=== PATIENT | male | born 1965 | race Two or more races ===

== ENCOUNTER 2024-12-13 20:10 | Inpatient (IN) | payer MEDICAID, OTHER ==
[~2024-12-13] VITALS: Ht 167.6 cm; Wt 72.0 kg
--- NOTE | 2024-12-13 20:20 | ED.PDOC ---
SOB-HPI HPI Comments 59y M who presents to the ED via EMS for chief complaint of shortness of breath. Per EMS, pt has been having flu-like symptoms with associated shortness of breath, fever, cough, chills, and congestion for the past 1 days getting worse. EMS arrived on scene and noted pt was tachycardic in the 120's, temp of 102.3 F , with noted 02 sat in the 70's. Pt was given IV fluids and heart rate went down to the 110's. Pt was placed on 02 and pt has 02 sat in the mid 90's with no noted respiratory distress and brought to the ED. Pt otherwise in no noted distress in the ED. Pt otherwise denies any other symptoms at this time. Chief Complaint: Shortness of Breath Time Seen by MD: 20:33 Reviewed notes: Sales Marketing Manager Notes Information Source: Patient Mode of Arrival: EMS Brought in by: EMS Past Medical History PAST MEDICAL HISTORY: Unknown Surgical History: Unknown Family History Family History: Unknown Social History Smoker: Non-Smoker Alcohol: Denies ETOH Use Drugs: Denies Drug Use Lives In: Home Constitutional: reports: chills, fever; denies: diaphoresis, fatigue, malaise, sweats, weakness, others EENTM: reports: nose congestion; denies: blurred vision, double vision, ear bleeding, ear discharge, ear drainage, ear pain, ear ringing, eye pain, eye redness, hearing loss, mouth pain, mouth swelling, nasal discharge, nose bleeding, nose pain, photophobia, tearing, throat pain, throat swelling, voice changes, others Respiratory: reports: shortness of breath; denies: cough, hemoptysis, orthopnea, SOB at rest, SOB with excertion, stridor, wheezing, others Cardiovascular: denies: chest pain, dizzy spells, diaphoresis, Dyspnea on exertion, edema, irregular heart beat, left arm pain, lightheadedness, palpitations, PND, syncope, others Gastrointestinal: denies: abdomen distended, abdominal pain, blood streaked bowels, constipated, diarrhea, dysphagia, difficulty swallowing, hematemesis, melena, nausea, poor appetite, poor fluid intake, rectal bleeding, rectal pain, vomiting, others Genitourinary: denies: burning, dysuria, flank pain, frequency, hematuria, incontinence, penile discharge, penile sore, pain, testicle pain, testicle swelling, urgency, others Neurological: denies: dizziness, fainting, headache, left sided numbness, left sided weakness, numbness, paresthesia, pre-existing deficit, right sided numbness, right sided weakness, seizure, speech problems, tingling, tremors, weakness, others Musculoskeletal: denies: back pain, gout, joint pain, joint swelling, muscle pain, muscle stiffness, neck pain, others Integumetry: denies: bruises, change in color, change in hair/nails, dryness, laceration, lesions, lumps, rash, wounds, others Allergic/Immunocompromised: denies: Difficulty Healing, Frequent Infections, Hives, Itching, others Hematologic/Lymphatic: denies: anemia, blood clots, easy bleeding, easy bruising, swollen glands, others Endocrine: denies: excessive hunger, excessive sweating, excessive thirst, excessive urination, flushing, intolerance to cold, intolerance to heat, unexplained weight gain, unexplained weight loss, others Psychiatric: denies: anxiety, bipolar disorder, depression, hopeless, panic disorder, schizophrenia, sleepless, suicidal, others All Other Systems: Reviewed and Negative Physical Exam Exam Comments acutely ill appearing General Appearance: Moderate Distress HEENT: Normal ENT Inspection, Pharynx Normal, TMs Normal Neck: Full Range of Motion, Non-Tender, Normal, Normal Inspection Respiratory: Decreased Breath Sounds, Respiratory Distress, Rhonchi Cardiovascular: No Edema, No JVD, No Murmur, No Gallop, Normal Peripheral Pulses, Regular Rate/Rhythm Breast Exam: Deferred Gastrointestinal: No Organomegaly, Non Tender, No Pulsatile Mass, Normal Bowel Sounds, Soft Genitalia: Deferred Pelvic: Deferred Rectal: Deferred Extremities: No calf tenderness, Normal capillary refill, Normal inspection, Normal range of motion, Non-tender, No pedal edema Musculoskeletal : Apperance: Normal Neurologic: Alert, supervisor blood II-XII nml as Tested, No Motor Deficits, Normal Affect, Normal Mood, No Sensory Deficits Cerebellar Function: Normal Reflexes: Normal Skin: Dry, Normal Color, Warm Lymphatic: No Adenopathy Was a procedure done? Was a procedure done?: No Differential Dx Differential Diagnosis: CHF, COPD, Pneumonia, Pulmonary Embolism, Respiratory Distress, Pharyngitis Comments COVID, influenza A and B, sepsis, acute respiratory failure X-Ray, Labs, Meds, VS Vital Signs Date Time Temp Pulse Resp B/P (MAP) Pulse Ox O2 Delivery O2 Flow Rate FiO2 12/13/24 20:25 109 12/13/24 20:10 30 97 Nasal Cannula 3.0 12/13/24 20:10 103.2 110 30 152/87 (108) 97 Lab Test 12/13/24 20:52 12/13/24 20:34 Range/Units Urine Color Light-yellow Yellow Urine Clarity Clear Clear Urine pH 7.0 5.0-9.0 Urine Specific [place] 1.017 1.001-1.035 Urine Protein Negative Negative Urine Ketones Negative Negative Urine Blood 1+ H Negative /uL Urine Nitrite Negative Negative Urine Bilirubin Negative Negative Urine Urobilinogen Normal Negative mg/dL Urine Leukocyte Esterase Negative Negative /uL Urine RBC 10 0 - 3 /hpf Urine Microscopic WBC < 1 0-3 /HPF Urine Squamous Epithelial Cells None seen <5 /hpf Urine Bacteria Few H None Seen /hpf Urine Glucose Normal Normal mg/dL White Blood Count 6.2 4.4-10.8 10^3/uL Red Blood Count 4.79 4.5-5.90 10^6/uL Hemoglobin 13.8 13.5-17.5 g/dL Hematocrit 40.1 L 41.0-53.0 % Mean Corpuscular Volume 83.8 80.0-100.0 fL Mean Corpuscular Hemoglobin 28.9 28.0-32.0 pg Mean Corpuscular Hemoglobin Concent 34.5 32.0-36.0 g/dL Red Cell Distribution Width 13.4 11.8-14.3 % Platelet Count 176 140-450 10^3/uL Mean Platelet Volume 7.0 6.9-10.8 fL Neutrophils (%) (Auto) 76.3 37.0-80.0 % Lymphocytes (%) (Auto) 12.5 10.0-50.0 % Monocytes (%) (Auto) 10.9 0.0-12.0 % Eosinophils (%) (Auto) 0.1 0.0-7.0 % Basophils (%) (Auto) 0.2 0.0-2.0 % Neutrophils # (Auto) 4.7 1.6-8.6 10 ^3/uL Lymphocytes # (Auto) 0.8 0.4-5.4 10 ^3/uL Monocytes # (Auto) 0.7 0-1.3 10 ^3/uL Eosinophils # (Auto) 0 0-0.8 10 ^3/uL Basophils # (Auto) 0 0-0.2 10 ^3/uL Nucleated Red Blood Cells 0.1 % Sodium Level 128 L 136-145 mmol/L Potassium Level 3.7 3.5-5.1 mmol/L Chloride Level 100 98-107 mmol/L Carbon Dioxide Level 19 L 20-31 mmol/L Anion Gap 9 5-15 Blood Urea Nitrogen 11 9-23 mg/dL Creatinine 0.89 0.700-1.30 mg/dL Glomerular Filtration Rate Calc 99 >90 mL/min BUN/Creatinine Ratio 12.4 10.0-20.0 Serum Glucose 103 74-106 mg/dL Lactic Acid Level 1.0 0.4-2.0 mmol/L Calcium Level 8.9 8.7-10.4 mg/dL Total Bilirubin 1.1 H 0.2-1.0 mg/dL Aspartate Amino Transferase (AST) 27 13-40 U/L Alanine Aminotransferase (ALT) 18 7-40 U/L Alkaline Phosphatase 58 46-116 U/L Total Protein 7.1 5.7-8.2 g/dL Albumin 4.6 3.2-4.8 g/dL [place] [address] Ph: [phone] DIAGNOSTIC IMAGING Diagnostic Imaging Report : [id number] Signed PATIENT: CHARLOTTE OLIVER ACCT: [id number] UNIT: [id number] : 1965 LOC: ER ROOM / BED: / AGE / SEX: 59 / M ADM STATUS: REG ER SERVICE 17 ORDERING PHYSICIAN: ALANA ABEL MD PROCEDURE(s): CXRP - CHEST PORTABLE REASON: SOB, fever ORDER NUMBER(s): [id number], ACCESSION NUMBER(s): [id number] CHEST RADIOGRAPH Indication: SOB, fever Technique: Single frontal view of the chest was obtained Comparison: None Findings/ IMPRESSION: Bilateral mid to lower lung zone patchy opacities which raise concern for multifocal pneumonia versus atelectasis versus mild pulmonary edema. ATED BY: MALIHA MARROQUIN DO DICTATED DATE/TIME: 12/13/242121 SIGNED BY: MALIHA MARROQUIN DO SIGNED DATE/TIME: 12/13/242121 CC: Time of 1ST Reevaluation: 21:05 Reevaluation 1ST: Unchanged Time of 2ND Reevaluation: 21:50 Reevaluation 2ND: Unchanged Patient Education/Counseling: Diagnosis, Treatment Family Education/Counseling: No Family Present Departure 1 Departure Time of Disposition: 21:50 Impression: Primary Impression: Respiratory failure with hypoxia Additional Impression: Pneumonia Disposition: ADMITTED INPATIENT Condition: Guarded Discharged With: Self Critical Care Note Critical Care Time?: Yes (45 min-critical care time only) Critical care comment: Total critical care time: Approximately 36 minutes Due to a high probability of clinically significant, life threatening deterioration, the patient required my highest level of preparedness to intervene emergently and I personally spent this critical care time directly and personally managing the patient. This critical care time included obtaining a history; examining the patient; pulse oximetry; ordering and review of studies; arranging urgent treatment with development of a management plan; evaluation of patient's response to treatment; frequent reassessment; and, discussions with other providers. This critical care time was performed to assess and manage the high probability of imminent, life-threatening deterioration that could result in multi-organ failure. It was exclusive of separately billable procedures and treating other patients. Stability Stability form required: No Heart Score Heart Score: Heart Score Response (Comments) Value History N/A 0 EKG N/A 0 Age N/A 0 Risk Factors N/A 0 Troponin N/A 0 Total 0 I personally scribed for ALANA ABEL MD (ERIKA) on 12/13/24 at 20:20. Electronically submitted by Neida Whitt ([facility]). I personally scribed for ALANA ABEL MD (ERIKA) on 12/13/24 at 20:36. Electronically submitted by Neida Whitt ([facility]). I personally scribed for ALANA ABEL MD (ERIKA) on 12/13/24 at 21:28. Electronically submitted by [facility] ALANA ABEL MD Dec 13, 2024 20:20
[2024-12-13] MEDS: ACETAMINOPHEN 325 MG TAB PO ONE (20:30)
[2024-12-13] MEDS: SODIUM CHLORIDE 0.9% 1,000 ML IVB ONE (20:30)
[2024-12-13 20:47] LABS: Basophils # (auto) 0 10 ^3/uL (0-0.2); Basophils % (auto) 0.2 % (0.0-2.0); Eosinophils # (auto) 0 10 ^3/uL (0-0.8); Eosinophils % (auto) 0.1 % (0.0-7.0); Hematocrit 40.1 % (41.0-53.0); Hemoglobin 13.8 g/dL (13.5-17.5); Lymphocytes # (auto) 0.8 10 ^3/uL (0.4-5.4); Lymphocytes % (auto) 12.5 % (10.0-50.0); Mean Corpuscular Hemoglobin 28.9 pg (28.0-32.0); Mean Corpuscular Hgb Conc. 34.5 g/dL (32.0-36.0); Mean Corpuscular Volume 83.8 fL (80.0-100.0); Monocytes # (auto) 0.7 10 ^3/uL (0-1.3); Monocytes % (auto) 10.9 % (0.0-12.0); Neutrophils # (auto) 4.7 10 ^3/uL (1.6-8.6); Neutrophils % (auto) 76.3 % (37.0-80.0); Nucleated Red Blood Cells % 0.1 %; Platelet Count (auto) 176 10^3/uL (140-450); Red Blood Cells 4.79 10^6/uL (4.5-5.90); Red Cell Distribution Width 13.4 % (11.8-14.3); White Blood Cell 6.2 10^3/uL (4.4-10.8)
--- NOTE | 2024-12-13 20:52 | ECG ---
[facility] Test Date: 2024-12-13 Test Time: 20:25:06 Pat Name: CHARLOTTE OLIVER Department: ED Room: 0209T Gender: M Finisher Operator: CARLOS MANUEL : 1965 Requested By: ALANA ABEL Order Number: [id number] Reading MD: Lopez Desouza Measurements Intervals [place] Rate: 109 P: 51 VA: 158 QRS: 88 QRSD: 106 T: 52 QT: 329 QTc: 444 Interpretive Statements Sinus tachycardia Electronically Signed On 12-17-2024 8:49:38 PST by Lopez Desouza Please click the below link to view image of tracing.
[2024-12-13 21:01] LABS: Alanine Aminotransferase 18 U/L (7-40); Albumin 4.6 g/dL (3.2-4.8); Alkaline Phosphatase 58 U/L (46-116); Anion Gap 9 (5-15); Aspartate Aminotransferase 27 U/L (13-40); BUN/Creatinine Ratio 12.4 (10.0-20.0); Bilirubin, Total 1.1 mg/dL (0.2-1.0); Blood Urea Nitrogen 11 mg/dL (9-23); Calcium 8.9 mg/dL (8.7-10.4); Chloride 100 mmol/L (98-107); Glucose 103 mg/dL (74-106); Potassium 3.7 mmol/L (3.5-5.1)
[2024-12-13 21:02] LABS: Total Protein 7.1 g/dL (5.7-8.2)
--- NOTE | 2024-12-13 21:25 | DVH ---
CHEST RADIOGRAPH Indication: SOB, fever Technique: Single frontal view of the chest was obtained Comparison: None Findings/ IMPRESSION: Bilateral mid to lower lung zone patchy opacities which raise concern for multifocal pneumonia versus atelectasis versus mild pulmonary edema.
[2024-12-13 21:36] LABS: Urine Bacteria FEW /hpf (None Seen); Urine Blood 1+ /uL (Negative); Urine Clarity Clear (Clear); Urine Color Light-Yellow (Yellow); Urine Protein, UAD Negative (Negative); Urine Specific Gravity 1.017 (1.001-1.035); Urine Squamous Epithelial Cell None Seen /hpf (<5); Urine Urobilinogen Normal (Negative); Urine WBC < 1 /HPF (0-3)
[2024-12-13 21:39] LABS: Carbon Dioxide 19 mmol/L (20-31); Sodium 128 mmol/L (136-145)
[2024-12-13] MEDS: cefTRIAXone 1GM/50ML D5W 50 ML IV ONE (22:07)
[2024-12-13] MEDS: AZITHROMYCIN 500MG/ 250ML 250 ML IV ONE (22:26)
[2024-12-14] VITALS (7 sets, daily range): BP systolic 104; BP diastolic 62–65; PULSE 63–106; RESP 16–22; TEMP 97.8–98.2; O2SAT 94–98
[2024-12-14 01:26] LABS: Rapid Influenza A Negative (Negative)
[2024-12-14 01:27] LABS: Rapid Influenza B Positive (Negative)
[2024-12-14] MEDS ORDERED: MORPHINE SULFATE INJ 2 MG/ml SYRG IV PRN (02:30)
[2024-12-14] MEDS ORDERED: ONDANSETRON HCL 4 MG/2 ML VIAL IV PRN (02:30)
[2024-12-14] MEDS ORDERED: NITROGLYCERIN 0.4 MG SL TAB SL PRN (02:30)
[2024-12-14] MEDS ORDERED: DOCUSATE SOD 100 MG CAP PO PRN (02:30)
[2024-12-14] MEDS ORDERED: HYDROcodone-ACET 5/325MG TAB PO PRN (02:30)
--- NOTE | 2024-12-14 02:30 | DVHHP2 ---
History of Present Illness Reason for Visit: Respiratory failure with hypoxia History of Present Illness The patient is a 59-year-old male who denies past medical history presented to [facility] ED with complaint of shortness of breaths. Patient reports symptoms progressively get worse with cough, nasal congestion, fever, chills, getting worse that prompted this visit. Patient was seen and evaluated in the ED, laboratory data shows WBC 6.2, platelets 176, sodium 128, potassium 3.7, BUN 11, creatinine 0.89, GFR 99, glucose 103, BNP 41.82, temperature 103.2 F, tachycardic in the 120's, 02 sat in the 70's and was placed on oxygen 2 liter/minutes via nasal cannula O2 saturation improved to 97%. Chest x-ray revealing bilateral mid to lower lung zone patchy opacities which raises concern for multifocal pneumonia versus atelectasis versus mild pulmonary edema. Serology reports positive for influenza B. Patient was started on IV antibiotic regimen azithromycin, please see medication orders section in the computer. On my assessment, patient denies chest pain, no headache, no dizziness, no diaphoresis, no nausea, no vomiting, no fever, no chills. Patient was admitted for further evaluation and medical management. Past Medical History Unknown Past Surgical History Unknown Family History Reviewed, noncontributory to the management of this case. Past Social History The patient lives at home, denies smoking, alcohol or illicit drugs abuse. Review of Systems Constitutional: Yes: Fever, Chills, Weakness; No: Sweats, Malaise, Other Eyes: No: Pain, Vision change, Conjunctivae inflammation, Eyelid inflammation, Other, Redness ENT: Nose congestion; No: Ear pain, Ear discharge, Nose pain, Nose discharge, Mouth pain, Mouth swelling, Throat pain, Throat swelling, Other Respiratory: Shortness of breath; No: Cough, Dry, SOB with excertion, Wheezing, Hemoptysis, Pleuritic Pain, Sputum, Wheezing, Other Cardiovascular: No: Chest Pain, Palpitations, Orthopnea, Paroxysmal Noc. Dyspnea, Edema, Lt Headedness, Other Gastrointestinal: No: Nausea, Vomiting, Abdominal Pain, Diarrhea, Constipation, Melena, Hematochezia, Other Genitourinary: No Dysuria, No Frequency, No Incontinence, No Hematuria, No Retention, No Other Musculoskeletal: No: other, neck pain, shoulder pain, arm pain, back pain, hand pain, leg pain, foot pain Skin: No: Rash, Lesions, Jaundice, Bruising, Other Neurological: No: Weakness, Numbness, Incoordination, Change in speech, Confusion, Seizures, Other Allergies: Coded Allergies: NO KNOWN ALLERGIES (Unverified , 12/13/24) Exam Vital Signs Vital Signs Date Time Temp Pulse Resp B/P (MAP) Pulse Ox O2 Delivery O2 Flow Rate FiO2 12/14/24 02:16 107 20 126/68 (87) 91 12/13/24 21:30 103.2 12/13/24 20:10 Nasal Cannula 3.0 General Appearance: Alert, Oriented X3, Cooperative, No acute distress HEENT: Atraumatic, PERRLA, EOMI, Mucous membr. moist/pink Respiratory: Normal air movement, Other (Diminished breath sounds) Cardiovascular: Regular rate, Normal S1, Normal S2, No murmurs Abdominal: Normal bowel sounds, Soft, No tenderness, No hepatospenomegaly, No masses Extremities: No clubbing, No cyanosis, No edema, Normal pulses, No tenderness/swelling Skin: No rashes, No breakdown, No significant lesion Neuro: Normal speech, Normal tone, Sensation intact, Cranial nerves 3-12 NL, Reflexes 2+, Other (Generalized weakness) Psych/Mental Status: Mental status NL, Mood NL Labs/Xrays Labs Test 12/13/24 22:00 12/13/24 20:52 12/13/24 20:34 Range/Units Influenza Type A Antigen Negative Negative Influenza Type B Antigen Positive Negative Urine Color Light-yellow Yellow Urine Clarity Clear Clear Urine pH 7.0 5.0-9.0 Urine Specific [place] 1.017 1.001-1.035 Urine Protein Negative Negative Urine Ketones Negative Negative Urine Blood 1+ H Negative /uL Urine Nitrite Negative Negative Urine Bilirubin Negative Negative Urine Urobilinogen Normal Negative mg/dL Urine Leukocyte Esterase Negative Negative /uL Urine RBC 10 0 - 3 /hpf Urine Microscopic WBC < 1 0-3 /HPF Urine Squamous Epithelial Cells None seen <5 /hpf Urine Bacteria Few H None Seen /hpf Urine Glucose Normal Normal mg/dL White Blood Count 6.2 4.4-10.8 10^3/uL Red Blood Count 4.79 4.5-5.90 10^6/uL Hemoglobin 13.8 13.5-17.5 g/dL Hematocrit 40.1 L 41.0-53.0 % Mean Corpuscular Volume 83.8 80.0-100.0 fL Mean Corpuscular Hemoglobin 28.9 28.0-32.0 pg Mean Corpuscular Hemoglobin Concent 34.5 32.0-36.0 g/dL Red Cell Distribution Width 13.4 11.8-14.3 % Platelet Count 176 140-450 10^3/uL Mean Platelet Volume 7.0 6.9-10.8 fL Neutrophils (%) (Auto) 76.3 37.0-80.0 % Lymphocytes (%) (Auto) 12.5 10.0-50.0 % Monocytes (%) (Auto) 10.9 0.0-12.0 % Eosinophils (%) (Auto) 0.1 0.0-7.0 % Basophils (%) (Auto) 0.2 0.0-2.0 % Neutrophils # (Auto) 4.7 1.6-8.6 10 ^3/uL Lymphocytes # (Auto) 0.8 0.4-5.4 10 ^3/uL Monocytes # (Auto) 0.7 0-1.3 10 ^3/uL Eosinophils # (Auto) 0 0-0.8 10 ^3/uL Basophils # (Auto) 0 0-0.2 10 ^3/uL Nucleated Red Blood Cells 0.1 % Sodium Level 128 L 136-145 mmol/L Potassium Level 3.7 3.5-5.1 mmol/L Chloride Level 100 98-107 mmol/L Carbon Dioxide Level 19 L 20-31 mmol/L Anion Gap 9 5-15 Blood Urea Nitrogen 11 9-23 mg/dL Creatinine 0.89 0.700-1.30 mg/dL Glomerular Filtration Rate Calc 99 >90 mL/min BUN/Creatinine Ratio 12.4 10.0-20.0 Serum Glucose 103 74-106 mg/dL Lactic Acid Level 1.0 0.4-2.0 mmol/L Calcium Level 8.9 8.7-10.4 mg/dL Total Bilirubin 1.1 H 0.2-1.0 mg/dL Aspartate Amino Transferase (AST) 27 13-40 U/L Alanine Aminotransferase (ALT) 18 7-40 U/L Alkaline Phosphatase 58 46-116 U/L Troponin I High Sensitivity 5 </=54 ng/L B-Type Natriuretic Peptide 41.82 0-100 pg/mL Total Protein 7.1 5.7-8.2 g/dL Albumin 4.6 3.2-4.8 g/dL PATIENT: CHARLOTTE OLIVER ACCT: [id number] UNIT: [id number] : 1965 LOC: ER ROOM / BED: / AGE / SEX: 59 / M ADM STATUS: REG ER SERVICE 17 ORDERING PHYSICIAN: ALANA ABEL MD PROCEDURE(s): CXRP - CHEST PORTABLE REASON: SOB, fever ORDER NUMBER(s): [id number], ACCESSION NUMBER(s): [id number] CHEST RADIOGRAPH Indication: SOB, fever Technique: Single frontal view of the chest was obtained Comparison: None Findings/ IMPRESSION: Bilateral mid to lower lung zone patchy opacities which raise concern for multifocal pneumonia versus atelectasis versus mild pulmonary edema. Assessment/Plan Assessment/Plan Respiratory failure with hypoxia Influenza B Fever, unspecified Pneumonia, unspecified organism Plan 1. Admit to telemetry unit 2. Breathing treatment 3. Pain control management 4. IV antibiotic management 5. Management of fluids and electrolytes 6. Consultation for pulmonology 7. Diagnostic test chest x-ray 8. DVT prophylaxis-on SCDs 9. Repeat labs CBC, CMP in a.m. 10. Continue with current medical management 11. Treatment plan discussed with patient and RN. Patient verbalized understanding. Plan discussed with: Patient, Other (RN) My Orders Orders - ALLA CHAN DNP Procedure Category Date Status Time Complete Blood Count LAB 12/14/24 Verified 04:00 Comprehensive LAB 12/14/24 Verified Metabolic Panel 04:00 Problem List: (1) Respiratory failure with hypoxia (2) Influenza B (3) Fever, unspecified (4) Pneumonia, unspecified organism Date of Service: Dec 14, 2024 Billing Provider: ALLA CHAN DNP Common Visit Codes: 98109-[id number] INP/OBS CARE (HIGH) ALLA CHAN DNP Dec 14, 2024 02:30
[2024-12-14] MEDS: ACETAMINOPHEN 325 MG TAB PO PRN (03:20)
[2024-12-14] MEDS: DexAMETHasone SOD PHOS 10MG/1ML VIAL INJ IV ONE (03:21)
[2024-12-14] MEDS: SODIUM CHLORIDE 0.9% 1,000 ML IV SCH (03:21)
[2024-12-14] MEDS: IBUPROFEN 600 MG TAB PO ONE (05:11)
[2024-12-14 06:01] LABS: Basophils # (auto) 0 10 ^3/uL (0-0.2); Basophils % (auto) 0.2 % (0.0-2.0); Eosinophils # (auto) 0 10 ^3/uL (0-0.8); Hematocrit 38.6 % (41.0-53.0); Hemoglobin 13.4 g/dL (13.5-17.5); Lymphocytes # (auto) 0.5 10 ^3/uL (0.4-5.4); Mean Corpuscular Hemoglobin 29.1 pg (28.0-32.0); Mean Corpuscular Hgb Conc. 34.8 g/dL (32.0-36.0); Mean Corpuscular Volume 83.6 fL (80.0-100.0); Monocytes # (auto) 0.6 10 ^3/uL (0-1.3); Monocytes % (auto) 6.5 % (0.0-12.0); Neutrophils # (auto) 7.6 10 ^3/uL (1.6-8.6); Neutrophils % (auto) 87.3 % (37.0-80.0); Nucleated Red Blood Cells % 0.1 %; Platelet Count (auto) 191 10^3/uL (140-450); Red Blood Cells 4.62 10^6/uL (4.5-5.90); Red Cell Distribution Width 13.7 % (11.8-14.3); White Blood Cell 8.7 10^3/uL (4.4-10.8)
[2024-12-14 06:16] LABS: Alanine Aminotransferase 25 U/L (7-40); Albumin 4.5 g/dL (3.2-4.8); Alkaline Phosphatase 63 U/L (46-116); Anion Gap 10 (5-15); Aspartate Aminotransferase 40 U/L (13-40); BUN/Creatinine Ratio 10.7 (10.0-20.0); Calcium 8.9 mg/dL (8.7-10.4); Glucose 102 mg/dL (74-106); Potassium 3.8 mmol/L (3.5-5.1); Total Protein 7.1 g/dL (5.7-8.2)
[2024-12-14 06:18] LABS: Bilirubin, Total 1.3 mg/dL (0.2-1.0); Blood Urea Nitrogen 9 mg/dL (9-23); Carbon Dioxide 18 mmol/L (20-31); Chloride 96 mmol/L (98-107); Sodium 124 mmol/L (136-145)
[2024-12-14] MEDS: ASPirin 81 mg TAB PO SCH (11:43)
[2024-12-14] MEDS: OSELTAMIVIR 75 MG CAP PO SCH (11:43)
--- NOTE | 2024-12-14 14:01 | DVHPNRES ---
Progress Note Date Seen: Dec 14, 2024 Resident Creating Document: ROSHAN JARAMILLO RESIDENT Has the PT tested + for MRSA If YES, has PT been informed?: No Medical Necessity Reason Pt with a Central, PICC or Fol: No Subjective Review of Systems This is a 59-year-old male with no significant past medical history, (per she says he is off of from high cholesterol but not on any medications), the patient presented to the ED with chief complaint of shortness of breaths associated with fever and chills. The patient also reported productive cough and nasal congestion. The patient denied chest pain, abdominal pain, nausea, vomiting, diarrhea or any other complaint. The patient stated that the symptoms started a couple of days before coming to the ED. initial chest x-ray showed bilateral patchy opacities on both lungs that he has a little bit more prominent on the right mid lobe. Initial CBC and BNP were grossly unremarkable. Urinalysis came back negative, BNP was normal range at 29.86. The patient tested positive for influenza A. The patient was started on oseltamivir 75 mg b.i.d., IV azithromycin and was admitted for further assessment and management of viral pneumonia. Patient seen and examined at bedside. The patient is alert and oriented in person, place and time. The patient is currently on 2 L of oxygen through nasal cannula saturating 97%. The patient still reports mild to moderate shortness of breaths, cough associated with generalized weakness and fatigue. We explained the patient the current diagnosis and current plan of care. We will continue on oseltamivir 75 mg b.i.d. IV azithromycin. We will start the patient on respiratory therapy albuterol and ipratropium med nebs q.6 p.r.n.. We will continue monitoring oxygen saturation and titrating oxygen down as tolerated. ROS Constitutional: Reports generalized weakness and fatigue. Denies weight loss, fever and chills. HEENT: Denies changes in vision and hearing. Respiratory: Reports mild to moderate shortness of breath and productive cough. Cardiovascular: Denies chest discomfort or palpitations GI: Denies abdominal pain, nausea, vomiting and diarrhea. : Denies dysuria and urinary frequency. Musculoskeletal: Denies myalgias and joint pain Skin: Denies rash and pruritus. Neurological: Denies dizziness, headache, vision or hearing problems Objective vital signs Vital Sign Date Time Temp Pulse Resp B/P (MAP) Pulse Ox O2 Delivery O2 Flow Rate FiO2 12/14/24 12:00 68 18 106/68 (81) 94 12/14/24 08:00 98.2 98.2 12/14/24 08:00 Nasal Cannula* 2 28 Total Intake and Output 12/13/24 12/13/24 12/14/24 15:00 23:00 07:00 Intake Total 1050 ml Balance 1050 ml medications Current Medications Medications Dose Ordered Sig/Sejal Route Start Time Stop Time Status Last Admin Dose Admin Ceftriaxone Sodium 50 ml @ 100 mls/hr DAILY@2100 IV 12/14/24 21:00 Azithromycin 250 ml @ 125 mls/hr DAILY@2200 IV 12/14/24 22:00 Aspirin 81 mg DAILY PO 12/14/24 10:00 12/14/24 11:43 81 MG Dexamethasone Sodium Phosphate 6 mg DAILY IV 12/15/24 10:00 Sodium Chloride 1,000 ml @ 60 mls/hr [id number] IV 12/14/24 02:30 12/14/24 03:21 60 MLS/HR Acetaminophen/ Hydrocodone Bitart 1 tab Q4HP PRN PO 12/14/24 02:30 Ondansetron HCl 4 mg Q4HP PRN IV 12/14/24 02:30 Docusate Sodium 100 mg BIDPRN PRN PO 12/14/24 02:30 Acetaminophen 650 mg Q6HP PRN PO 12/14/24 02:30 12/14/24 03:20 650 MG Nitroglycerin 0.4 mg Q5MINP PRN SL 12/14/24 02:30 Morphine Sulfate 2 mg Q30M PRN IV 12/14/24 02:30 Oseltamivir Phosphate 75 mg Q12HR PO 12/14/24 10:00 12/19/24 09:59 12/14/24 11:43 75 MG Examination Physical examination General: Patient alert and oriented in person, place and time. Patient looks to have generalized weakness and fatigue. Patient following commands. HEENT: Normocephalic, atraumatic, moist mucous membranes Respiratory/pulmonary: There are crackles mostly present on mid to lower right lobe, left lung sounds grossly clear. No wheezes at this time. Currently on 2 L of oxygen through nasal cannula saturating 96%. Cardiovascular: Normal heart sounds S1 and S2 with no associated murmurs Abdomen: Abdomen nondistended, there is no pain to palpation in any of the abdominal quadrants, no palpable masses. Extremities: There is no peripheral edema present at the lower extremities. Peripheral Pulses: 3+ Radial (R). 3+ Radial (L). 3+ Dorsalis pedis (R). 3+ Dorsalis pedis(L) Skin: No rashes or pruritus, there is no sacral edema present at this time. Neurological: Intact cranial nerves with no focal neurologic deficits laboratory and microbiology Laboratory Tests 12/14/24 04:50 Test 12/14/24 04:50 Range/Units Serum Glucose 102 74-106 mg/dL Problem List/Assessment/Plan Problem List/Assessment/Plan Assessment/Plan Acute hypoxic respiratory failure likely due to Gram-positive/Gram-negative bacterial pneumonia Influenza A Viral pneumonia -initial chest x-ray was showing bilateral opacities in both lungs but more prominent on the right mid lobe. -currently on 2 L of oxygen through nasal cannula saturating 96% -patient was started on IV ceftriaxone and azithromycin -start oseltamivir 75 mg b.i.d. -continue NS at 60 cc/hour -symptomatic treatment with acetaminophen -respiratory therapy with albuterol and ipratropium q.6 p.r.n. -monitor saturation and titrate oxygen down as tolerated. Mild hyponatremia; asymptomatic -sodium 126 -continue IV fluids and monitor electrolytes closely Dyslipidemia -ordered lipid panel Goals of care discussed with the patient and at bedside for 20min, FULL CODE Plan discussed with Dr. Torres Plan discussed with: Patient, Spouse, Son, Other (RN) Addendum Addendum Addendum I was physically present for the escobar portions of the service provided to patient by THE RESIDENT. I have reviewed the documentation, discussed the case with resident and agree with the resident's documentation except as noted. Also the patient's clinical case was discussed with the patient's nurse. This medical document was created using an electronic medical record system with computerized dictation system. Although this document has been carefully reviewed, there might still be some phonetic and typographical errors. These areas are purely typographical due to imperfections of the software programs, and do not reflect any compromise in the patient's medical care. Late signature. Date of Service: Dec 14, 2024 Billing Provider: LOUIS TORRES MD Common Visit Codes: 37899-[id number] INP/OBS CARE(HIGH) Secondary Visit Codes: 01042-[id number] CARE PLAN 30 MINUTES (20 minutes) ROSHAN JARAMILLO Dec 14, 2024 14:01 LOUIS TORRSE MD Dec 15, 2024 06:49
[2024-12-14] MEDS: IPRATROPIUM BROM 0.5 MG/2.5ML INH SOL ONE (14:49)
[2024-12-14] MEDS: IPRATROPIUM BROM 0.5 MG/2.5ML INH SOL NEB PRN (14:49)
[2024-12-14] MEDS: ALBUTEROL SULF 2.5 MG/0.5ML(0.5%) NEB SOLN ONE (14:49)
[2024-12-14] MEDS: ALBUTEROL SULF 2.5 MG/0.5ML(0.5%) NEB SOLN NEB PRN (14:49)
[2024-12-14 14:52] LABS: LDL Cholesterol 78 mg/dL (< 100); Triglycerides 40 mg/dL (< 150)
[2024-12-14 14:54] LABS: Cholesterol 125 mg/dL (< 200); HDL Cholesterol 45 mg/dL (40-59)
--- NOTE | 2024-12-14 18:40 | DVHINCON2 ---
Date of service: Dec 14, 2024 Referring Physician CANDELARIO Saldana Reason for Consultation Acute hypoxic respiratory failure History of Present Illness 59-year-old man with no prior medical history presented with shortness of breath. He was having flu-like symptoms associated with shortness of breath, f ever and cough. He also noted chills. Noted congestion for the last 24 hours prior to admission. EMS arrived and found him tachycardic and febrile. He was found to be hypoxic with a pulse oximetry reading in the 70s. IV fluids were initiated with improvement in his tachycardia. He was placed on supplemental oxygen with improvement O2 saturation to the mid 90s. Pulmonary consultation is called due to acute hypoxic respiratory failure. Review of systems: Unable to obtain due to patient's critical condition. Past medical history: Unable to obtain due to patient's critical condition Past surgical history: Unable to obtain due to patient's critical condition Medications: Reviewed Allergies: No known drug allergies. Family history: No family history of premature CAD. No family history of lung disease Social history: Nonsmoker. No alcohol or illicit drug use. Lives at home. Allergies: Coded Allergies: NO KNOWN ALLERGIES (Unverified , 12/13/24) Current Medications Current Medications Medications (Trade) Dose Ordered Sig/Sejal Route PRN Reason Start Time Stop Time Status Last Admin Ceftriaxone Sodium 50 ml @ 100 mls/hr DAILY@2100 IV 12/14/24 21:00 Azithromycin 250 ml @ 125 mls/hr DAILY@2200 IV 12/14/24 22:00 Aspirin 81 mg DAILY PO 12/14/24 10:00 12/14/24 11:43 Dexamethasone Sodium Phosphate (Decadron Injection) 6 mg DAILY IV 12/15/24 10:00 Sodium Chloride 1,000 ml @ 60 mls/hr [id number] IV 12/14/24 02:30 12/14/24 03:21 Acetaminophen/ Hydrocodone Bitart ([place] 5/325MG Tab) 1 tab Q4HP PRN PO MODERATE PAIN (4-6 PAIN SCALE) 12/14/24 02:30 Ondansetron HCl (Zofran) 4 mg Q4HP PRN IV NAUSEA / VOMITING 12/14/24 02:30 Docusate Sodium (Colace Capsule) 100 mg BIDPRN PRN PO FOR CONSTIPATION 12/14/24 02:30 Acetaminophen (Tylenol Tablet) 650 mg Q6HP PRN PO PAIN SCALE 1-3 OR TEMP>100.4 12/14/24 02:30 12/14/24 03:20 Nitroglycerin (Ntrostat Sublingual) 0.4 mg Q5MINP PRN SL FOR CHEST PAIN 12/14/24 02:30 Morphine Sulfate 2 mg Q30M PRN IV FOR CHEST PAIN 12/14/24 02:30 Oseltamivir Phosphate (Tamiflu 75MG Capsule) 75 mg Q12HR PO 12/14/24 10:00 12/19/24 09:59 12/14/24 11:43 Albuterol (Ventolin Medneb) 2.5 mg Q6HPRN PRN NEB SHORTNESS OF BREATH 12/14/24 14:00 12/14/24 14:49 Ipratropium [place] (Atrovent Medneb) 0.5 mg Q6HPRN PRN NEB SHORTNESS OF BREATH 12/14/24 14:00 12/14/24 14:49 Vital Signs Vital Signs Date Time Temp Pulse Resp B/P (MAP) Pulse Ox O2 Delivery O2 Flow Rate FiO2 12/14/24 18:13 119/62 (81) 12/14/24 16:00 82 94 12/14/24 15:04 98.2 18 2.0 98.2 12/14/24 14:46 Nasal Cannula* 28 Physical Exam Gen.: Patient lying in bed in no apparent distress. On supplemental oxygen. Head: Normocephalic, atraumatic Eyes: EOMI/PERRLA. Ears: Normal hearing. Normal anatomy. Neck/trachea: Trachea midline, supple. Nose: Normal external anatomy. Mouth: Moist mucous membranes. Chest: Fair air entry bilaterally. No wheezing or rhonchi. Cardio vascular: Positive S1, positive S2. Regular rate and rhythm. Abdomen: Positive bowel sounds in all 4 quadrants. Soft, non-tender, non- distended. : Deferred. Rectal: Deferred Skin: Warm, dry. Extremities: 2+ radial pulses bilaterally. No lower extremity edema. Neuro: Awake, alert. No gross motor or sensory deficits. Cranial nerves II through XII intact. Gait not assessed. Labs/Diagnostic Data Labs Test 12/14/24 04:50 12/13/24 22:00 12/13/24 20:52 12/13/24 20:34 Range/Units White Blood Count 8.7 # 4.4-10.8 10^3/uL Red Blood Count 4.62 4.5-5.90 10^6/uL Hemoglobin 13.4 L 13.5-17.5 g/dL Hematocrit 38.6 L 41.0-53.0 % Mean Corpuscular Volume 83.6 80.0-100.0 fL Mean Corpuscular Hemoglobin 29.1 28.0-32.0 pg Mean Corpuscular Hemoglobin Concent 34.8 32.0-36.0 g/dL Red Cell Distribution Width 13.7 11.8-14.3 % Platelet Count 191 140-450 10^3/uL Mean Platelet Volume 7.3 6.9-10.8 fL Neutrophils (%) (Auto) 87.3 H 37.0-80.0 % Lymphocytes (%) (Auto) 6.0 L 10.0-50.0 % Monocytes (%) (Auto) 6.5 0.0-12.0 % Eosinophils (%) (Auto) 0.0 0.0-7.0 % Basophils (%) (Auto) 0.2 0.0-2.0 % Neutrophils # (Auto) 7.6 1.6-8.6 10 ^3/uL Lymphocytes # (Auto) 0.5 0.4-5.4 10 ^3/uL Monocytes # (Auto) 0.6 0-1.3 10 ^3/uL Eosinophils # (Auto) 0 0-0.8 10 ^3/uL Basophils # (Auto) 0 0-0.2 10 ^3/uL Nucleated Red Blood Cells 0.1 % Sodium Level 124 L 136-145 mmol/L Potassium Level 3.8 3.5-5.1 mmol/L Chloride Level 96 L 98-107 mmol/L Carbon Dioxide Level 18 L 20-31 mmol/L Anion Gap 10 5-15 Blood Urea Nitrogen 9 9-23 mg/dL Creatinine 0.84 0.700-1.30 mg/dL Glomerular Filtration Rate Calc 100 >90 mL/min BUN/Creatinine Ratio 10.7 10.0-20.0 Serum Glucose 102 74-106 mg/dL Calcium Level 8.9 8.7-10.4 mg/dL Total Bilirubin 1.3 H 0.2-1.0 mg/dL Aspartate Amino Transferase (AST) 40 13-40 U/L Alanine Aminotransferase (ALT) 25 7-40 U/L Alkaline Phosphatase 63 46-116 U/L Total Protein 7.1 5.7-8.2 g/dL Albumin 4.5 3.2-4.8 g/dL Triglycerides Level 40 < 150 mg/dL Cholesterol Level 125 < 200 mg/dL LDL Cholesterol 78 < 100 mg/dL HDL Cholesterol 45 40-59 mg/dL Influenza Type A Antigen Negative Negative Influenza Type B Antigen Positive Negative Urine Color Light-yellow Yellow Urine Clarity Clear Clear Urine pH 7.0 5.0-9.0 Urine Specific [place] 1.017 1.001-1.035 Urine Protein Negative Negative Urine Ketones Negative Negative Urine Blood 1+ H Negative /uL Urine Nitrite Negative Negative Urine Bilirubin Negative Negative Urine Urobilinogen Normal Negative mg/dL Urine Leukocyte Esterase Negative Negative /uL Urine RBC 10 0 - 3 /hpf Urine Microscopic WBC < 1 0-3 /HPF Urine Squamous Epithelial Cells None seen <5 /hpf Urine Bacteria Few H None Seen /hpf Urine Glucose Normal Normal mg/dL Lactic Acid Level 1.0 0.4-2.0 mmol/L Troponin I High Sensitivity 5 </=54 ng/L B-Type Natriuretic Peptide 41.82 0-100 pg/mL Assessment Impression: Acute hypoxic respiratory failure Influenza type B Febrile Multifocal Pneumonia likely Gram-negative Atelectasis Pulmonary edema Plan: Supplemental oxygen line on 2 liters/minute via nasal cannula keep O2 saturation above 92%. Continue antibiotics Follow up cultures IV fluid hydration Monitor ins and outs Monitor renal function Monitor electrolytes Supplement as necessary. DVT prophylaxis Prognosis: Poor given multiple comorbidities. Rest of plan per hospitalist and other consultants. Thank you CANDELARIO Saldana for allowing me to participate in this patient's care. Further recommendations will depend on patient's clinical course. Please do not hesitate to contact me if you have any questions or concerns. This medical document was created using an electronic medical record system with [employer] dictation system. Although this document has been carefully reviewed, there may still be some phonetic and typographical errors. These areas are purely typographical due to imperfections of the software programs, and do not reflect any compromise in the patient's medical care. Plan discussed with: Other (VOICE COACH) LISA ZHONG MD Dec 14, 2024 18:40
[2024-12-14] MEDS: cefTRIAXone 1GM/50ML D5W 50 ML IV SCH (21:13)
[2024-12-14] MEDS: AZITHROMYCIN 500MG/ 250ML 250 ML IV SCH (22:42)
[2024-12-15] VITALS (9 sets, daily range): BP systolic 103–109; BP diastolic 59–70; PULSE 67–93; RESP 15–18; TEMP 36.7; O2SAT 95–97
[2024-12-15 06:07] LABS: Basophils # (auto) 0 10 ^3/uL (0-0.2); Basophils % (auto) 0.1 % (0.0-2.0); Eosinophils # (auto) 0 10 ^3/uL (0-0.8); Hematocrit 38.1 % (41.0-53.0); Hemoglobin 12.9 g/dL (13.5-17.5); Lymphocytes # (auto) 1.2 10 ^3/uL (0.4-5.4); Lymphocytes % (auto) 8.7 % (10.0-50.0); Mean Corpuscular Hemoglobin 28.4 pg (28.0-32.0); Mean Corpuscular Hgb Conc. 33.9 g/dL (32.0-36.0); Mean Corpuscular Volume 83.8 fL (80.0-100.0); Monocytes # (auto) 1.1 10 ^3/uL (0-1.3); Monocytes % (auto) 7.6 % (0.0-12.0); Neutrophils # (auto) 11.9 10 ^3/uL (1.6-8.6); Neutrophils % (auto) 83.6 % (37.0-80.0); Platelet Count (auto) 213 10^3/uL (140-450); Red Blood Cells 4.55 10^6/uL (4.5-5.90); Red Cell Distribution Width 13.7 % (11.8-14.3); White Blood Cell 14.3 10^3/uL (4.4-10.8)
[2024-12-15 06:17] LABS: Alanine Aminotransferase 23 U/L (7-40); Albumin 4.2 g/dL (3.2-4.8); Alkaline Phosphatase 59 U/L (46-116); Anion Gap 9 (5-15); Aspartate Aminotransferase 27 U/L (13-40); BUN/Creatinine Ratio 22.1 (10.0-20.0); Blood Urea Nitrogen 19 mg/dL (9-23); Calcium 9.3 mg/dL (8.7-10.4); Carbon Dioxide 22 mmol/L (20-31); Chloride 106 mmol/L (98-107); Potassium 4.5 mmol/L (3.5-5.1); Sodium 137 mmol/L (136-145)
[2024-12-15 06:18] LABS: Bilirubin, Total 0.6 mg/dL (0.2-1.0); Total Protein 6.7 g/dL (5.7-8.2)
[2024-12-15 06:41] LABS: Glucose 143 mg/dL (74-106)
[2024-12-15 09:00] LABS: Hepatitis B Surface Antigen Negative (Negative)
[2024-12-15 09:16] LABS: Hepatitis C Antibody Negative (Negative)
[2024-12-15] MEDS: DexAMETHasone SOD PHOS 10MG/1ML VIAL INJ IV SCH (12:28)
--- NOTE | 2024-12-15 16:42 | DVHDSRES ---
Discharge Summary Date of Admission Resident Creating Document: ROSHAN JARAMILLO RESIDENT Dec 14, 2024 at 02:20 Date of Discharge: Dec 15, 2024 Admitting Diagnosis Acute hypoxic respiratory failure Wounds: No wounds present at this time. Labs/Diagnostic Data: Laboratory Results Test 12/15/24 05:28 12/14/24 04:50 12/13/24 22:00 12/13/24 20:52 White Blood Count 14.3 10^3/uL (4.4-10.8) Red Blood Count 4.55 10^6/uL (4.5-5.90) Hemoglobin 12.9 g/dL (13.5-17.5) Hematocrit 38.1 % (41.0-53.0) Mean Corpuscular Volume 83.8 fL (80.0-100.0) Mean Corpuscular Hemoglobin 28.4 pg (28.0-32.0) Mean Corpuscular Hemoglobin Concent 33.9 g/dL (32.0-36.0) Red Cell Distribution Width 13.7 % (11.8-14.3) Platelet Count 213 10^3/uL (140-450) Mean Platelet Volume 7.5 fL (6.9-10.8) Neutrophils (%) (Auto) 83.6 % (37.0-80.0) Lymphocytes (%) (Auto) 8.7 % (10.0-50.0) Monocytes (%) (Auto) 7.6 % (0.0-12.0) Eosinophils (%) (Auto) 0.0 % (0.0-7.0) Basophils (%) (Auto) 0.1 % (0.0-2.0) Neutrophils # (Auto) 11.9 10 ^3/uL (1.6-8.6) Lymphocytes # (Auto) 1.2 10 ^3/uL (0.4-5.4) Monocytes # (Auto) 1.1 10 ^3/uL (0-1.3) Eosinophils # (Auto) 0 10 ^3/uL (0-0.8) Basophils # (Auto) 0 10 ^3/uL (0-0.2) Nucleated Red Blood Cells 0.0 % Sodium Level 137 mmol/L (136-145) Potassium Level 4.5 mmol/L (3.5-5.1) Chloride Level 106 mmol/L (98-107) Carbon Dioxide Level 22 mmol/L (20-31) Anion Gap 9 (5-15) Blood Urea Nitrogen 19 mg/dL (9-23) Creatinine 0.86 mg/dL (0.700-1.30) Glomerular Filtration Rate Calc 100 mL/min (>90) BUN/Creatinine Ratio 22.1 (10.0-20.0) Serum Glucose 143 mg/dL (74-106) Calcium Level 9.3 mg/dL (8.7-10.4) Total Bilirubin 0.6 mg/dL (0.2-1.0) Aspartate Amino Transferase (AST) 27 U/L (13-40) Alanine Aminotransferase (ALT) 23 U/L (7-40) Alkaline Phosphatase 59 U/L (46-116) Total Protein 6.7 g/dL (5.7-8.2) Albumin 4.2 g/dL (3.2-4.8) Hepatitis B Surface Antigen Negative (Negative) Hepatitis C Antibody Negative (Negative) Triglycerides Level 40 mg/dL (< 150) Cholesterol Level 125 mg/dL (< 200) LDL Cholesterol 78 mg/dL (< 100) HDL Cholesterol 45 mg/dL (40-59) Influenza Type A Antigen Negative (Negative) Influenza Type B Antigen Positive (Negative) Urine Color Light-yellow (Yellow) Urine Clarity Clear (Clear) Urine pH 7.0 (5.0-9.0) Urine Specific [place] 1.017 (1.001-1.035) Urine Protein Negative (Negative) Urine Ketones Negative (Negative) Urine Blood 1+ /uL (Negative) Urine Nitrite Negative (Negative) Urine Bilirubin Negative (Negative) Urine Urobilinogen Normal mg/dL (Negative) Urine Leukocyte Esterase Negative /uL (Negative) Urine RBC 10 /hpf (0 - 3) Urine Microscopic WBC < 1 /HPF (0-3) Urine Squamous Epithelial Cells None seen /hpf (<5) Urine Bacteria Few /hpf (None Seen) Urine Glucose Normal mg/dL (Normal) Test 12/13/24 20:34 Lactic Acid Level 1.0 mmol/L (0.4-2.0) Troponin I High Sensitivity 5 ng/L (</=54) B-Type Natriuretic Peptide 41.82 pg/mL (0-100) Other Laboratory Tests 12/15/24 05:28 Brief Hx & Hospital Course: Hospitalization course: This is a 59-year-old male with no significant past medical history, (per she says he is off of from high cholesterol but not on any medications), the patient presented to the ED with chief complaint of shortness of breaths associated with fever and chills. The patient also reported productive cough and nasal congestion. The patient denied chest pain, abdominal pain, nausea, vomiting, diarrhea or any other complaint. The patient stated that the symptoms started a couple of days before coming to the ED. initial chest x-ray showed bilateral patchy opacities on both lungs that he has a little bit more prominent on the right mid lobe. Initial CBC and BNP were grossly unremarkable. Urinalysis came back negative, BNP was normal range at 29.86. The patient tested positive for influenza A. The patient was started on oseltamivir 75 mg b.i.d., IV azithromycin and ceftriaxone. The patient also received respiratory therapist with albuterol and ipratropium med nebs p.r.n. today, patient was examined and evaluated at bedside. The patient was saturating 95% on room air and denied shortness of breath, chest pain, fever/chills or any other associated symptoms. The patient stated that feels well overall. We will start the patient home on doxycycline 100 mg b.i.d. for five additional days and oseltamivir 75 mg b.i.d. for three additional days. Patient agrees and understands the plan. Admitting diagnosis: Acute hypoxic respiratory failure. Discharge plan -Doxycycline 100mg BID for 5 days -Oseltamivir 75mg BID for 3 days -F/U on [place] clinic -F/U with PCP in 1 wee Consults/Reason for consult N/A Operations or Procedures CHEST RADIOGRAPH Indication: SOB, fever Technique: Single frontal view of the chest was obtained Comparison: None Findings/ IMPRESSION: Bilateral mid to lower lung zone patchy opacities which raise concern for multifocal pneumonia versus atelectasis versus mild pulmonary edema. Condition at Discharge: Good Final Diagnosis/Problems List Acute hypoxic respiratory failure likely due to Gram-positive/Gram-negative bacterial pneumonia Influenza A Viral pneumonia Mild hyponatremia; asymptomatic Dyslipidemia Discharge Disposition: Home Discharge Instruct/Medications Diet: Regular Activity: No Restrictions, As Tolerated Follow Up/Referral: F/U with discharge clinic F/U with PCP in 1 week Medications: Doxycycline 100mg BID for 5 days Oseltamivir 75mg BID for 3 days Discharge Statement: "Patient was advised to return to the ER or call 911 if any headaches, dizziness, shortness of breath, chest pain, abdominal pain, bleeding, fevers, or worsening of medical condition. Patient was counseled about treatment plan, medications, possible side effects, patientverbalized understanding. All questions were answered to the best of my ability. This discharge took greater then 30 minutes in planning, reviewing documentation, counseling the patient, and discussing with other team members." ASSESSMENT ASSESSMENT Assessment Acute hypoxic respiratory failure likely due to Gram-positive/Gram-negative bacterial pneumonia Influenza A Viral pneumonia Mild hyponatremia; asymptomatic Dyslipidemia Date of Service: Dec 15, 2024 Billing Provider: CARMELLA PATTERSON MD Common Visit Codes: 49354-YYL/OBS DISCH DAY >30min ROSHAN JARAMILLO RESIDENT Dec 15, 2024 16:42 CARMELLA PATTERSON MD Dec 16, 2024 09:56
[2024-12-15] MEDS ORDERED: OSEL75CA5 PO (16:44)
[2024-12-15] MEDS ORDERED: DOXY100C79 PO (16:44)
--- NOTE | 2024-12-15 23:22 | DVHPN2 ---
Progress Note - Dictate Date Seen: Dec 15, 2024 Has the PT tested + for MRSA If YES, has PT been informed?: No Medical Necessity Reason Pt with a Central, PICC or Fol: No Subjective Patient seen and examined at bedside. Breathing comfortably on room air. Overnight events reviewed vital signs Vital Sign Date Time Temp Pulse Resp B/P (MAP) Pulse Ox O2 Delivery O2 Flow Rate FiO2 12/15/24 18:29 36.7 67 16 95 12/15/24 16:00 109/66 (80) 12/15/24 10:15 Room Air* 0 21 Total Intake and Output 12/14/24 12/14/24 12/15/24 15:00 23:00 07:00 Intake Total 480 ml 410 ml 910 ml Output Total 2050 ml Balance -1570 ml 410 ml 910 ml objective Gen.: Patient lying in bed in no apparent distress. Breathing on room air. Head: Normocephalic, atraumatic. Eyes: EOMI/PERRLA. Ears: Normal hearing. Normal anatomy. Neck/trachea: Trachea midline, supple. Nose: Normal external anatomy. Mouth: Moist mucous membranes. Chest: Decreased air entry bilaterally. No wheezing or rhonchi. Cardiovascular: Positive S1, positive S2. Regular rate and rhythm. Abdomen: Positive bowel sounds in all 4 quadrants. Soft, non-tender, non- distended. : Deferred. Rectal: Deferred. Skin: Warm, dry. Intact. Extremities: 2+ radial pulses bilaterally. No lower extremity edema. Neuro: Awake, alert, oriented x3. No gross motor or sensory deficits. Cranial nerves II through XII intact. Gait not assessed. laboratory and microbiology Laboratory Tests 12/15/24 05:28 Test 12/15/24 05:28 Range/Units Serum Glucose 143 H 74-106 mg/dL Assessment/Plan Impression: Acute hypoxic respiratory failure Influenza type B Febrile Multifocal Pneumonia likely Gram-negative Atelectasis Pulmonary edema Events: Tapered off supplemental oxygen, breathing on room air. Improved O2 requirements Supplemental oxygen PRN Tamiflu given Complete antibiotic course Incentive spirometry Patient is stable for discharge from the pulmonary standpoint. Follow up in 2 weeks in Pulmonary Clinic. Labs and imaging reviewed. Rest of plan as noted below. Plan: Supplemental oxygen PRN keep O2 saturation above 92%. Continue antibiotics Follow up cultures Monitor ins and outs Monitor renal function Monitor electrolytes Supplement as necessary. DVT prophylaxis Prognosis: Guarded given multiple comorbidities. Rest of plan per hospitalist and other consultants. Thank you CANDELARIO Saldana for allowing me to participate in this patient's care. Further recommendations will depend on patient's clinical course. Please do not hesitate to contact me if you have any questions or concerns. This medical document was created using an electronic medical record system with [employer] dictation system. Although this document has been carefully reviewed, there may still be some phonetic and typographical errors. These areas are purely typographical due to imperfections of the software programs, and do not reflect any compromise in the patient's medical care. Plan discussed with: Patient, Other (PATRICIO Sharma) LISA ZHONG MD Dec 15, 2024 23:22
== END 2024-12-15 20:10 | disposition home or self-care (01) | DRG 133 ==
LOC: EDBD 20:10 → ER 20:10 → TELE 12-14 02:20 → CENTRAL 12-14 22:02 → TELE-CENTR 12-14 22:15
PROVIDERS: ADMIT Student in an Organized Health Care Education/Training Program; ATTEND Student in an Organized Health Care Education/Training Program
DX: J96.01 Acute respiratory failure with hypoxia (principal); J10.08 Influenza due to other identified influenza virus with other specified pneumonia; J15.69 Pneumonia due to other Gram-negative bacteria; J15.9 Unspecified bacterial pneumonia; J12.9 Viral pneumonia, unspecified; E87.1 Hypo-osmolality and hyponatremia; J81.1 Chronic pulmonary edema; Z79.899 Other long term (current) drug therapy; J98.11 Atelectasis; E78.5 Hyperlipidemia, unspecified
CPT/HCPCS: 36415; 71045; 80053; 80061; 81001; 83605; 83880; 84484; 85025; 86803; 87040; 87340; 87804; 93005; 94640; 99291; G0378; J1100